=== PATIENT | female | born 1995 | race Caucasian/White ===

== ENCOUNTER 2016-07-10 09:06 | Outpatient (CLI) | payer OTHER ==
[~2016-07-10 09:06] MED LIST: ACETAMINOPHEN/C1 TA3 PO; FERROUS SULFAT325 M1 PO; PRENATAL VITAMINS PO; TUMS500 MG PO; VICODIN EQUIVAL1 TAB PO
--- NOTE | 2016-07-10 10:10 | DIAGNOSTIC IMAGING REPORT ---
PROCEDURE: US COMPLETE PELVIC W/TRANSVAG INDICATION: PELVIC PAIN TECHNIQUE: Transabdominal and endovaginal laura scale and color Doppler sonographic images of the female pelvis were obtained. COMPARISON: None. FINDINGS: TRANSABDOMINAL SCANS: Normal kidneys. Anteverted uterus. TRANSVAGINAL SCANS: Uterus measures 6.5 x 2.7 x 5 cm. 2 mm myometrial calcification. Normal endometrium measures 3.9 mm. Left ovary measures 3.1 x 1.9 x 1.6 cm with small peripheral follicles. There is vascular flow to the left ovary. Right ovary is not visualized. There is no adnexal mass or free fluid the cul-de-sac. IMPRESSION: 1. Right ovary not visualized, otherwise negative pelvic ultrasound
== END 2016-07-10 23:00 ==
LOC: US SRH 09:06
DX: R10.2 Pelvic and perineal pain (principal)